=== PATIENT | female | born 1995 | race Two or more races ===

== ENCOUNTER 2019-01-06 12:55 | Emergency (ER) | payer SELFPAY ==
--- NOTE | 2019-01-06 12:59 | PDOC ---
Rapid Medical Evaluation Time Seen by Provider: 01/06/19 12:57 Medical Evaluation: 01/06/19 12:57 CC: "I think I have a UTI." urinary frequency and urgency with suprapubic "irritation." PE: Mild suprapubic tenderness. No CVAT Orders: urine The patient will proceed to the ER for continued Evaluation. Discharge Disposition - Diagnosis Urinary frequency - Referrals - Patient Instructions - Post Discharge Activity
[2019-01-06 13:00] VITALS: BP 117/73; PULSE 80; TEMP 98; BMI 28.0
[2019-01-06 14:16] LABS: EPI CELLS 5.6 /HPF (0-5/HPF); HYALINE CASTS 2 /lpf (0-8); URINE APPEARANCE CLOUDY; URINE BACTERIA 109.1 /hpf (NEGATIVE); URINE BILIRUBIN NEGATIVE (NEGATIVE); URINE COLOR YELLOW; URINE GLUCOSE (UA) NEGATIVE (NEGATIVE); URINE KETONE TRACE (NEGATIVE); URINE LEUK ESTERASE 3+ (NEGATIVE); URINE NITRITE NEGATIVE (NEGATIVE); URINE PROTEIN 1+ (NEGATIVE); URINE RBC 86 /hpf (0-4); URINE WBC 275 /hpf (0-5)
--- NOTE | 2019-01-06 14:24 | PDOC ---
History of Present Illness - General Chief Complaint: Urinary Problem Stated Complaint: UTI SYMPTOMS Time Seen by Provider: 01/06/19 12:57 - History of Present Illness Initial Comments: 01/06/19 14:23 23-year-old female without comorbidities presents for dysuria x1 day without systemic symptoms Past History - Past Medical History Allergies/Adverse Reactions: Allergies Allergy/AdvReac Type Severity Reaction Status Date / Time No Known Allergies Allergy Verified 01/06/19 13:00 Home Medications: Ambulatory Orders Nitrofurantoin Monohyd/M-Cryst [Macrobid -] 100 mg PO BID #14 capsule 01/06/19 COPD: No - Psycho Social/Smoking Cessation Hx Smoking History: Never smoked Review of Systems - Review of Systems Constitutional: No: Fever : Yes: Burning, Dysuria *Physical Exam - Vital Signs Last Vital Signs Temp Pulse Resp BP Pulse Ox 98 F 80 18 117/73 99 01/06/19 12:57 01/06/19 12:57 01/06/19 12:57 01/06/19 12:57 01/06/19 12:57 - Physical Exam Comments: 01/06/19 14:23 GENERAL: The patient is awake, alert, and fully oriented, in no acute distress. HEAD: Normal with no signs of trauma. EYES: sclera anicteric, conjunctiva clear. EXTREMITIES: Normal range of motion, no edema. No clubbing or cyanosis. No cords, erythema, or tenderness. NEUROLOGICAL: Cranial nerves II through XII grossly intact. Normal speech, normal gait. PSYCH: Normal mood, normal affect. SKIN: Warm, Dry, normal turgor, no rashes or lesions noted. ED Treatment Course - ADDITIONAL ORDERS Additional order review: Laboratory Results 01/06/19 01/06/19 13:23 13:23 Urine Color Yellow Urine Appearance Cloudy Urine pH 6.0 Ur Specific [place] 1.032 Urine Protein 1+ H Urine Glucose (UA) Negative Urine Ketones Trace H Urine Blood 2+ H Urine Nitrite Negative Urine Bilirubin Negative Urine Urobilinogen 1.0 Ur Leukocyte Esterase 3+ H Urine WBC (Auto) 275 Urine RBC (Auto) 86 Urine Casts (Auto) 2 U Epithel Cells (Auto) 5.6 Urine Bacteria (Auto) 109.1 Urine HCG, Qual Negative Medical Decision Making - Medical Decision Making 01/06/19 14:24 Macrobid for UTI follow-up with PCP culture sent Discharge - Discharge Information Problems reviewed: Yes Clinical Impression/Diagnosis: Urinary frequency, UTI (urinary tract infection) Condition: Stable Disposition: HOME - Admission No - Additional Discharge Information Prescriptions: Nitrofurantoin Monohyd/M-Cryst [Macrobid -] 100 mg PO BID #14 capsule - Follow up/Referral Referrals: Carlos Hughes MD [Staff Physician] - - Patient Discharge Instructions Additional Instructions: Return to the emergency room for worsening symptoms. Without fail please follow -up with your primary care physician in 1 to 2 days for further evaluation and treatment options. Please take the antibiotics as directed. - Post Discharge Activity
== END 2019-01-06 14:45 | disposition home or self-care (01) ==
LOC: JERFT 12:55
DX: N39.0 Urinary tract infection, site not specified (principal)
CPT/HCPCS: 81003; 84703; 87086; 99282-25

== ENCOUNTER 2019-01-13 19:57 | Emergency (ER) | payer OTHER ==
--- NOTE | 2019-01-13 20:05 | PDOC ---
Rapid Medical Evaluation Time Seen by Provider: 01/13/19 20:03 Medical Evaluation: Allergies Allergy/AdvReac Type Severity Reaction Status Date / Time No Known Allergies Allergy Verified 01/06/19 13:00 01/13/19 20:03 I have performed a brief in-person evaluation of this patient. The patient presents with a chief complaint of: R sided headache since yesterday , denies N/V, +photophobia. LMP 3rd week of december, denies chance of . took tylenol last night w/o relief. Pertinent physical exam findings: well appearing, no focal neuro deficits I have ordered the following: migraine cocktail The patient will proceed to the ED for further evaluation. Discharge Disposition - Diagnosis Headache - Referrals - Patient Instructions - Post Discharge Activity
[2019-01-13 20:06] VITALS: BP 125/56; PULSE 69; TEMP 98.2; BMI 28.0
[2019-01-13] MEDS ORDERED: METOCLOPRAMIDE HCL INJECTION 10 MG/2 ML VIAL IVPUSH ONE ×2 (20:06→21:57)
[2019-01-13] MEDS ORDERED: KETOROLAC TROMETHAMINE 30 MG/1 ML VIAL IVPUSH ONE (20:06)
--- NOTE | 2019-01-13 20:51 | PDOC ---
History of Present Illness - General Chief Complaint: Migraine Headache Stated Complaint: PAIN Time Seen by Provider: 01/13/19 20:03 - History of Present Illness Initial Comments: 01/13/19 20:50 23-year-old female without comorbidities presents for evaluation of headache not characteristic of prior headaches. She states her headache began last night and was unrelieved with Tylenol. She has no nausea vomiting or visual changes Past History - Past Medical History Allergies/Adverse Reactions: Allergies Allergy/AdvReac Type Severity Reaction Status Date / Time No Known Allergies Allergy Verified 01/13/19 20:03 Home Medications: Ambulatory Orders Nitrofurantoin Monohyd/M-Cryst [Macrobid -] 100 mg PO BID #14 capsule 01/06/19 COPD: No - Psycho Social/Smoking Cessation Hx Smoking History: Never smoked Hx Alcohol Use: No Drug/Substance Use Hx: No Review of Systems - Review of Systems Neurological: Yes: Headache *Physical Exam - Vital Signs Last Vital Signs Temp Pulse Resp BP Pulse Ox 98.2 F 69 16 125/56 L 100 01/13/19 20:04 01/13/19 20:04 01/13/19 20:04 01/13/19 20:04 01/13/19 20:04 - Physical Exam Comments: 01/13/19 20:51 GENERAL: The patient is awake, alert, and fully oriented, in no acute distress. HEAD: Normal with no signs of trauma. EYES: sclera anicteric, conjunctiva clear. ENT: Ears normal NECK: Normal range of motion LUNGS: Breath sounds equal, clear to auscultation bilaterally. No wheezes, and no crackles. HEART: S1 and S2 without murmur, rub or gallop. ABDOMEN: Soft, nontender, normoactive bowel sounds. No guarding, no rebound. No masses. EXTREMITIES: Normal range of motion, no edema. No clubbing or cyanosis. No cords, erythema, or tenderness. NEUROLOGICAL: Cranial nerves II through XII grossly intact. Normal speech, normal gait. PSYCH: Normal mood, normal affect. SKIN: Warm, Dry, normal turgor, no rashes or lesions noted. Medical Decision Making - Medical Decision Making 01/13/19 21:33 test negative as per Norman in the lab 01/13/19 22:41 CAT scan negative headache resolved with IV medication follow-up with neurology Discharge - Discharge Information Problems reviewed: Yes Clinical Impression/Diagnosis: Headache Condition: Stable Disposition: HOME - Admission No - Follow up/Referral Referrals: Jyoti Mcintosh MD [Staff Physician] - - Patient Discharge Instructions Additional Instructions: Return to the emergency room for worsening symptoms. Tylenol Motrin as directed for headache should it return without fail please follow-up with neurology in 2 to 3 days for further evaluation and treatment options. - Post Discharge Activity
[2019-01-13] MEDS ORDERED: SODIUM CHLORIDE 0.9% 500 ML INFUS.BAG IV ONE (21:57)
[2019-01-13] MEDS ORDERED: ACETAMINOPHEN 1000 MG/100 ML VIAL (NON FORMULARY) IVPB ONE (21:57)
[2019-01-13] MEDS ORDERED: METOCLOPRAMIDE HCL INJECTION 10 MG/2 ML VIAL ONE (22:21)
[2019-01-13] MEDS ORDERED: ACETAMINOPHEN INJECTION 100 ML IVPB ONE (22:22)
== END 2019-01-13 23:05 | disposition home or self-care (01) ==
LOC: JERFT 19:57
PROC: 3E033NZ Introduction of Analgesics, Hypnotics, Sedatives into Peripheral Vein, Percutaneous Approach (ICD-10-PCS; principal; 2019-01-13)
PROC: 3E033GC Introduction of Other Therapeutic Substance into Peripheral Vein, Percutaneous Approach (ICD-10-PCS; 2019-01-13)
PROC: 3E033GC Introduction of Other Therapeutic Substance into Peripheral Vein, Percutaneous Approach (ICD-10-PCS; 2019-01-13)
DX: R51 Headache (principal)
CPT/HCPCS: 70450-TC; 96374; 96375; 99282-25; J0131